=== PATIENT | male | born 1960 | race Caucasian/White ===

== ENCOUNTER 2016-10-24 04:10 | Inpatient (IN) | payer OTHER ==
[~2016-10-24] VITALS: Ht 180.3 cm; Wt 90.7 kg
[~2016-10-24 04:10] MED LIST: AMLODIPINE BESY10 M1 PO; ASPIRIN EC81 M1 PO; CRESTOR40 M2 PO; LISINOPRIL-HCT1 EAC2 PO; TOPROL XL100 M1 PO
[2016-10-24] MEDS ORDERED: DILAUDID4 M1 PO (09:06)
[2016-10-24] MEDS ORDERED: MS CONTIN15 M2 PO (09:06)
[2016-10-24] MEDS ORDERED: ASPIRIN325 M2 PO (09:34)
[2016-10-24] MEDS ORDERED: MIRALAX17 G1 PO (09:34)
[2016-10-24] MEDS ORDERED: COLACE100 M1 PO (09:34)
--- NOTE | 2016-10-24 09:45 | Patient Discharge Instructions ---
Discharge Instructions General Discharge Information You were seen/treated for: Right hip pain You had these procedures: 10/24/16 Right total hip replacement Watch for these problems: Redness, swelling, fever, signs of infection. Uncontrolled pain, Excessive bleeding. Decreased range of motion or unable to bear weight. Chest pain, shortness of breath. Call Surgeon to remove: Stitches Do not soak the wound: Yes No bath, but you may shower: Yes Other wound care: Daily dry dressing changes or as needed Diet Continue normal diet: Yes Activity Activity Self Limited: Yes Activity Limited to: Weight bear as tolerated Additional ACTIVITY Info: Daily Physical therapy Acute Coronary Syndrome Inclusion Criteria At DC or during hospital stay patient has or had the following: ACS DIAGNOSIS No Discharge Core Measures Meds if any: Prescribed or Continued at Discharge Meds if any: NOT Prescribed or Continued at Discharge Congestive Heart Failure Inclusion Criteria At DC or during hospital stay patient has or had the following: CHF DIAGNOSIS No Discharge Core Measures Meds if any: Prescribed or Continued at Discharge Meds if any: NOT Prescribed or Continued at Discharge Cerebrovascular accident Inclusion Criteria At DC or during hospital stay patient has or had the following: CVA/TIA Diagnosis No Discharge Core Measures Meds if any: Prescribed or Continued at Discharge Meds if any: NOT Prescribed or Continued at Discharge Venous thromboembolism Inclusion Criteria VTE Diagnosis No VTE Type NONE VTE Confirmed by (Test) NONE Discharge Core Measures - Per Current guidelines, there needs to be overlap - treatment for the first 5 days of Warfarin therapy. - If discharged on Warfarin prior to 5 days of - overlap therapy, the patient will need to be - assessed for post discharge needs including - *Post discharge parental anticoagulation - *Warfarin and/or parental anticoagulation education - *Follow up date to check INR post discharge At least 5 days overlap therapy as Inpatient No Meds if any: Prescribed or Continued at Discharge Note: Overlap Therapy is Warfarin and Anticoagulant Meds if any: NOT Prescribed or Continued at Discharge
--- NOTE | 2016-10-24 09:46 | Admission Core Measures ---
Admission Meds I reviewed the following Meds: Current Medications Sig/Erin Start time Last Medication Dose Stop Time Status Admin Acetaminophen 975 MG ONCE 10/24 0000 NR (Tylenol) 10/24 2358 Amlodipine Besylate 10 MG DAILY 10/24 1000 AC (Norvasc) Atorvastatin Calcium 80 MG 1700 10/24 1700 AC (Lipitor) Cefazolin Sodium 2,000 MG ONCE 10/24 0000 NR (Kefzol-Ancef Inj) 10/24 2358 Hydrochlorothiazide 12.5 MG DAILY 10/24 1000 AC (Hydrodiuril) Lisinopril 10 MG DAILY 10/24 1000 AC (Prinivil) Metoprolol Succinate 100 MG DAILY 10/24 1000 AC (Toprol Xl) Oxycodone HCl 10 MG ONCE 10/24 0000 NR (Roxicodone) 10/24 2358 Acute Coronary Syndrome Inclusion Criteria ACS Diagnosis No Inpatient Core Measures LDL Reminder: If No, please order W/I first 24hr of stay Congestive Heart Failure Inclusion Criteria CHF Diagnosis No Cerebrovascular accident Inclusion Criteria CVA/TIA Diagnosis No Inpatient Core Measures Bedside Swallow Eval Reminder: If BSE failed, place ST order Antithrombotic Reminder: Order Antithrombotic Medication by end of day 2 Antithrombotic Reminder: Document Reason Antithrombotic Not ordered by end of day 2 AFIB/Flutter Reminder: If Present, add to problem list AFIB/Flutter Reminder: Order Anticoag Medication for pts with AFIB/Flutter Atherosclerosis Reminder: If Present, add to problem list LDL Reminder: If No, please order W/I first 24hr of stay PT Order Reminder: If No, please order Venous thromboembolism Inpatient Core Measures VTE Risk Factors: Age > 40, Surgery No [facility] VTE prophylaxis d/t No contraindications No VTE Pharm Prophylaxis d/t No contraindications Inclusion Criteria - Per Current guidelines, there needs to be overlap - treatment for the first 5 days of Warfarin therapy. - Parenteral Anticoagulation (IV or SC) needs to be - given along with Warfarin therapy. VTE Diagnosis No VTE Type NONE VTE Confirmed by (Test) NONE Problem List As ranked by this Provider includes Assessment & Plan 1. Status post total hip replacement, right HOME MEDS Home Med List Amlodipine Besylate 10 MG TABLET 1 TAB PO DAILY HTN (Reported) Aspirin (Ecotrin*) 81 MG TABLET.DR 1 TAB PO DAILY HX CARDIAC STENTS (Reported ) Aspirin (Aspirin*) 325 MG TABLET 1 TAB PO BID BLOOD THINNER Docusate Sodium (Colace) 100 MG CAPSULE 1 CAP PO BID PRN CONSTIPATION Hydromorphone HCl (Dilaudid) 4 MG TABLET 1-2 TAB PO Q4-6P PRN PAIN Lisinopril/Hydrochlorothiazide (Lisinopril-Hctz 10-12.5 MG Tab) 10 MG-12.5 MG TABLET 1 TAB PO DAILY HTN (Reported) Metoprolol Succ XL (Toprol XL) 100 MG TAB.ER.24H 1 TAB PO DAILY BP (Reported) Morphine Sulfate (Ms Contin) 15 MG TABLET.ER 1 TAB PO BID PAIN Polyethylene Glycol 3350 (Miralax) 17 GRAM POWD.PACK 1 PAC PO DAILY PRN CONSTIPATION Rosuvastatin Calcium (Crestor) 40 MG TABLET 1 TAB PO DAILY CHOLESTEROL ( Reported)
--- NOTE | 2016-10-24 09:47 | RADIOLOGY REPORT ---
EXAMINATION: XR HIP, RIGHT CLINICAL INFORMATION: Status post total right hip replacement. COMPARISON: None TECHNIQUE: AP and crosstable 2 views of the right hip. FINDINGS: There is total right hip prosthesis with prosthetic components in satisfactory alignment. No visible acute fracture or soft tissue abnormality seen. IMPRESSION: Total right hip arthroplasty with prosthetic components in satisfactory alignment. No acute fracture or soft tissue abnormality seen.
--- NOTE | 2016-10-24 09:48 | Discharge Summary ---
Visit Information Visit Dates Admission Date: 10/24/16 Discharge Date: 10/24/16 Hospital Course Course Attending Physician: CHANTE LUJAN MD Primary Care Physician: MARVA BOOTHE MD Hospital Course: Patient admitted to floor following procedure below. Patient ambulated with PT upon arrival to the floor. Patient continued to progress well. Upon discharge patient is afebrile, tolerating diet, pain controlled, ambulating well with rolling walker and PT. Complications: None Allergies: Coded Allergies: No Known Allergies (10/20/16) Significant Procedures: 10/24/16 right total hip arthroplasty Disposition Summary Disposition Principal Diagnosis: Right hip pain Additional Diagnosis: None Discharge Disposition: home health services Discharge Instructions General Discharge Information Code Status: Full Code Patient's Diet: Resume normal diet Patient's Activity: Weight-bearing as tolerated Daily physical therapy Follow-Up Instructions/Appts: Call office to schedule follow-up appointment Medications at Discharge Discharge Medications: Stop taking the following medications: Aspirin (Ecotrin*) 81 MG TABLET.DR ORAL DAILY Continue taking these medications: Amlodipine Besylate (Amlodipine Besylate) 10 MG TABLET 1 Tablet ORAL DAILY Rosuvastatin Calcium (Crestor) 40 MG TABLET 1 Tablet ORAL DAILY Metoprolol Succ XL (Toprol XL) 100 MG TAB.ER.24H 1 Tablet ORAL DAILY Lisinopril/Hydrochlorothiazide (Lisinopril-Hctz 10-12.5 MG Tab) 10 MG-12.5 MG TABLET 1 Tablet ORAL DAILY Start taking the following new medications: Hydromorphone HCl (Dilaudid) 4 MG TABLET 1-2 Tablet ORAL Q4-6P as needed for PAIN Qty = 36 No Refills Morphine Sulfate (Ms Contin) 15 MG TABLET.ER 1 Tablet ORAL TWICE DAILY Qty = 5 No Refills Aspirin (Aspirin*) 325 MG TABLET 1 Tablet ORAL TWICE DAILY Qty = 60 No Refills Docusate Sodium (Colace) 100 MG CAPSULE 1 Capsule ORAL TWICE DAILY as needed for CONSTIPATION Qty = 60 No Refills Polyethylene Glycol 3350 (Miralax) 17 GRAM POWD.PACK 1 Packet ORAL DAILY as needed for CONSTIPATION Qty = 14 Refills = 1 Instructions: dissolve in water Copies To: MARVA BOOTHE MD
[2016-10-24 10:10] VITALS: BP 148/90
--- NOTE | 2016-10-24 13:32 | PN- Orthopedic ---
Subjective Subjective: Post Op Note s/p right total hip replacement Patient without c/o. Pain controlled. Denies numbness/tingling in RLE. Tolerating PO intake without n/v. Ambulated in hallways without difficulties per patient. Voided. Denies CP/SOB. Objective Vital Signs and I&Os Vital Signs Date Time Temp Pulse Resp B/P Pulse O2 O2 Flow FiO2 Ox Delivery Rate 10/24 1244 76 114/68 10/24 1010 98.2 68 18 148/90 96 Room Air Room Air Intake & Output 10/24 1600 10/24 0800 10/24 0000 10/23 1600 10/23 0800 10/23 0000 Intake Total Output Total Balance Patient 200 lb Weight Physical Exam: Gen: NAD, comfortable, A&Ox3 Chest: CTAB, RRR Ext: Right hip dressing c/d/i. Right thigh soft. No calve TTP/Swelling, N/V intact BLE. Current Medications: Current Medications Sig/Erin Start time Last Medication Dose Route Stop Time Status Admin Acetaminophen 650 MG Q4P PRN 10/24 1030 AC PO Acetaminophen 975 MG ONCE 10/24 0000 DC PO 10/24 2359 Amlodipine Besylate 10 MG DAILY 10/24 1000 AC PO Aspirin 325 MG BID 10/24 1000 AC 10/24 PO 1243 Atorvastatin Calcium 80 MG 1700 10/24 1700 AC PO Cefazolin Sodium 2 GM IQ8 10/24 1600 AC N/A 1 UNIT IV 10/25 0029 Cefazolin Sodium 2,000 MG ONCE 10/24 0000 DC IV 10/24 2359 Docusate Sodium 100 MG DAILY 10/24 1000 AC 10/24 PO 1243 Hydrochlorothiazide 12.5 MG DAILY 10/24 1000 AC 10/24 PO 1243 Hydromorphone HCl 2 MG Q4P PRN 10/24 1030 AC PO Hydromorphone HCl 4 MG Q4P PRN 10/24 1030 AC PO Lisinopril 10 MG DAILY 10/24 1000 AC PO Metoprolol Succinate 100 MG DAILY 10/24 1000 AC PO Morphine Sulfate 2 MG Q2P PRN 10/24 1030 AC IV Ondansetron HCl 4 MG Q6P PRN 10/24 1030 AC IV Oxycodone HCl 10 MG .STK-MED ONE 10/24 0659 DC PO 10/24 0700 Oxycodone HCl 10 MG ONCE 10/24 0000 DC PO 10/24 2359 Polyethylene Glycol 17 GM DAILY NEEDED PRN 10/24 1030 AC PO Sodium Chloride 1,000 ML .[id number] 10/24 1030 AC 10/24 IV 1000 Assessment/Plan Assessment/Plan 56yo M POD#0 s/p right ELSA. AVSS, patient progressing well. Per PT he is cleared for discharge. - Pain control - Diet as tolerated - ASA 325mg PO BID - ALPS/TEDS - DC IVF - DC Home Core Measures/Miscellaneous Venous Thromboembolism VTE Risk Factors: Age > 40, Surgery VTE Contraindications: No Contraindications VTE Diagnosis: No VTE Type: NONE VTE Confirmed by (Test): NONE Beta Marin Is Beta Marin a Home Med? No Antibiotics Is Patient on Antibiotics? Yes If Yes: prophylaxis
[2016-10-24 13:34] VITALS: BP 114/76
--- NOTE | 2016-10-24 17:29 | Operative Report ---
Operative/Inv Procedure Report Surgery Date: 10/24/16 Name of Procedure: Right total hip replacement Pre-Operative Diagnosis: Primary right hip DJD Post-Operative Diagnosis: Same Estimated Blood Loss: 300 Surgeon/Ground Defence Officer: LE HOFF,CHANTE Mendez Anesthesia: block Operative/Procedure Note Note: Description of Procedure: The patient was taken to the operating room and positively identified. After induction of spinal anesthesia and administration of appropriate pre-operative antibiotics, the patient was positioned supine on the operating room table and all bony prominences were well padded. After performing a surgical timeout, the right lower extremity was prepped and draped in the usual sterile fashion. A direct anterior approach was made to the right hip. The incision was carried sharply through superficial soft tissues to the level of the fascia. Meticulous hemostasis was maintained with Bovie electocautery. The fascia over the tensor fascia lin muscle was opened sharply and the interval between the TFL and the sartorius was entered bluntly taking care to stay lateral to the lateral femoral cutaneous nerve. Retractors were placed around the femoral neck and the pericapsular fat was identified. The ascending branches of the lateral femoral circumflex vessels were identified and carefully coagulated. The pericapsular fat and anterior capsule were then resected. A napkin ring osteotomy was performed and the femoral head was removed without difficulty. Attention was then turned to the acetabulum. After appropriate placement of retractors, the acetabulum was exposed. Soft tissue was cleaned from the acetabular margin and notch. Overhanging osteophytes were removed and the teardrop was exposed. The acetabulum was then sequentially reamed to accept a 60 mm April Tritanium hemispherical solid back shell. This was impacted into place in the appropriate position and fitted with a 36 mm Trident X3 zero degree polyethylene insert. Attention was then turned to the femur. After performing the appropriate ligament releases, the proximal femur was exposed. It was then sequentially broached to accept a size 6 [place] accolade 2 stem. This was trialed for leg length and stability. The trial component was removed and the final component was impacted into place. The trunnion was carefully cleaned and fit with a 36 mm, +2.5 Biolox delta ceramic femoral head. The hip was reduced and put through a full range of motion and found to be stable. The articular space was then irrigated with sterile saline. The periarticular soft tissues were infilitrated with Marcaine. The fascial layer was closed with interrupted #1 vicryl suture and the skin was re-approximated with interrupted 2 -0 vicryl. The skin was closed with a running 3-0 V-Lock suture. Steri-strips and a sterile dressing were applied. The patient was awakened and taken to the recovery room in satisfactory condition.
== END 2016-10-24 15:38 | disposition home health service (06) | DRG 470 ==
LOC: ENRESERVDT → ENRESERVTM → EDSEX 04:10 → 2NB 04:10 → ENPENDDIS 04:10 → SDA 04:10 → 2NB 10:06
PROVIDERS: ADMIT Orthopaedic Surgery
PROC: 0SR904A Replacement of Right Hip Joint with Ceramic on Polyethylene Synthetic Substitute, Uncemented, Open Approach (ICD-10-PCS; principal; 2016-10-24)
DX: M16.11 Unilateral primary osteoarthritis, right hip (principal); I10 Essential (primary) hypertension; E78.2 Mixed hyperlipidemia; I25.10 Atherosclerotic heart disease of native coronary artery without angina pectoris; Z95.5 Presence of coronary angioplasty implant and graft
CPT/HCPCS: 2NSBP; 73502-RT; 88304; 97116-GO; 97161-GP; 97530-GO; J0690; J0735; J2405; J7508